=== PATIENT | female | born 1995 | race Caucasian/White ===

== ENCOUNTER 2020-09-26 12:15 | Emergency (ER) | payer SELFPAY ==
[~2020-09-26] VITALS: Ht 160 cm; Wt 81.6 kg
[~2020-09-26 12:15] MED LIST: AMOXIL250 M1 PO; BACTRIM DS 8001 TA1 PO; ELIMITE 5%60 GM T; FLONASE 0.05% 121 EA NAS; KEFLEX PO; KEFLEX500 MG PO; MOTRIN600 MG PO; MULTIPLE VITAMI1 CAP PO; NKHM; PREDNICOT10 MG PO; PRENATAL1 TA5 PO; PRENATAL1 TA7 PO; ROBITUSSIN DM 105 ML PO; ROXICET 325 MG/55 ML PO; ZITHROMAX Z PA250 MG PO; ZOFRAN ODT4 MG PO; ZOFRAN ODT4 MG SL; ZOFRAN4 MG PO; Zofran4 MG PO
[2020-09-26 12:51] LABS: BASO # 0.1 10*3/uL (0.0-0.1); BASO % 0.7 % (0.0-1.0); EOS % 0.5 % (1.0-4.0); HEMATOCRIT 40.2 % (37.0-47.0); LYMPH # 2.1 10*3/uL (1.3-4.4); MEAN CELL VOLUME 85.4 fl (81.0-99.0); MEAN CORPUSCULAR HGB 27.8 pg (27.0-31.0); MEAN CORPUSCULAR HGB CONC 32.6 g/dl (33.0-37.0); MEAN PLATELET VOLUME 9.6 fl (9.6-12.3); MONO # 0.3 10*3/uL (0.1-1.0); MONO % 4.5 % (3.0-9.0); NEUT # 5.1 10*3/uL (2.3-7.9); NEUT % 67.2 % (47.0-73.0); PLATELET COUNT AUTOMATED 344 10*3/uL (130-400); RED BLOOD COUNT 4.71 10*6/uL (4.10-5.10); RED CELL DISTRI WIDTH 12.1 % (0-14.5); WHITE BLOOD COUNT 7.6 10*3/uL (4.8-10.8)
[2020-09-26 13:05] LABS: ALBUMIN 3.6 gm/dl (3.1-4.5); ALKALINE PHOSPHATASE 71 U/L (45-117); BUN 11 mg/dl (7-24); CHLORIDE 111 mmol/L (98-107); CREATININE 0.91 mg/dL (0.55-1.02); POTASSIUM 3.7 mmol/L (3.5-5.1); SGOT/AST 8 IU/L (3-35); SGPT/ALT 24 U/L (12-78); SODIUM 140 mmol/L (136-145); TOTAL PROTEIN 7.6 gm/dL (6.4-8.2)
[2020-09-26 13:07] LABS: B-hCG (QUALITATIVE) NEGATIVE (NEGATIVE)
[2020-09-26 13:49] LABS: BILIRUBIN Negative (Negative); BLOOD Negative (Negative); CLARITY Clear (Clear); COLOR Yellow (Yellow); GLUCOSE Negative (Negative); KETONE Negative (Negative); LEUKO ESTERASE Negative (Negative); NITRITE Negative (Negative); UROBILINOGEN 0.2 E.U./dl (0.0-1.0)
[2020-09-26 14:08] LABS: WBC 0-2 wbc/hpf (0-5)
[2020-09-26] MEDS ORDERED: ZOFRAN4 MG PO (16:10)
== END 2020-09-26 16:32 | disposition home or self-care (01) ==
LOC: ED 12:15
PROVIDERS: Physician Assistant
DX: N94.6 Dysmenorrhea, unspecified (principal)